=== PATIENT | female | born 1985 | race Two or more races ===

== ENCOUNTER 2021-04-03 19:33 | Emergency (ER) | payer OTHER ==
[~2021-04-03] VITALS: Ht 167.6 cm; Wt 74.8 kg
[~2021-04-03 19:33] MED LIST: ZOVIRAX5 GM
[2021-04-03] MEDS ORDERED: CLARITIN10 MG PO (21:03)
== END 2021-04-04 | disposition home or self-care (01) ==
LOC: ER 19:33
DX: R09.81 Nasal congestion (principal); Z20.822 Contact with and (suspected) exposure to COVID-19